=== PATIENT | female | born 1945 | race Caucasian/White ===

== ENCOUNTER → 2016-08-03 | Outpatient (CLI) | payer BC, MEDICARE ==
[~2016-08-03] MED LIST: AMOXICILLIN500 MG PO; ARIMIDEX1 MG PO; Avapro300 MG PO; CALCIUM PO; CARVEDILOL12.5 MG PO; FLUTICASON0.05 MG/A2 NAS; FLUTICASON0.05 MG/AC NAS; HYDRALAZINE10 MG PO; HYDRODIURIL25 MG PO; IBU800 MG PO; LASIX20 MG PO; NATURE'S BLEND F1 MG PO; NORVASC5 MG PO; PROTONIX40 MG PO; SIMVASTATIN20 MG PO; SINGULAIR10 MG PO; VALIUM5 MG PO; VITAMIN D PO; XANAX0.25 MG PO
[2016-08-03 12:04] LABS: BASO # 0.1 10*3/uL (0.0-0.1); BASO % 0.9 % (0.0-1.0); EOS # 0.2 10*3/uL (0.0-0.4); EOS % 2.6 % (1.0-4.0); HEMATOCRIT 38.4 % (37.0-47.0); LYMPH # 1.4 10*3/uL (1.3-4.4); LYMPH % 24.3 % (27.0-41.0); MEAN CORPUSCULAR HGB 33.5 pg (27.0-31.0); MEAN CORPUSCULAR HGB CONC 33.9 g/dl (33.0-37.0); MEAN PLATELET VOLUME 9.7 fl (9.6-12.3); MONO # 0.6 10*3/uL (0.1-1.0); MONO % 10.7 % (3.0-9.0); NEUT # 3.5 10*3/uL (2.3-7.9); NEUT % 61.2 % (47.0-73.0); PLATELET COUNT AUTOMATED 262 10*3/uL (130-400); RED BLOOD COUNT 3.88 10*6/uL (4.10-5.10); RED CELL DISTRI WIDTH 12.4 % (0-14.5); WHITE BLOOD COUNT 5.7 10*3/uL (4.8-10.8)
== END | disposition home or self-care (01) ==
LOC: LAB 11:18 → RAD 11:30
PROVIDERS: Internal Medicine Hematology & Oncology
DX: C50.912 Malignant neoplasm of unspecified site of left female breast (principal); M81.0 Age-related osteoporosis without current pathological fracture; M25.551 Pain in right hip

== ENCOUNTER → 2016-08-07 | Outpatient (CLI) | payer BC, MEDICARE | END | disposition home or self-care (01) | LOC: RAD 03:58 | DX: M81.0 Age-related osteoporosis without current pathological fracture (principal); C50.912 Malignant neoplasm of unspecified site of left female breast; Z78.0 Asymptomatic menopausal state ==

== ENCOUNTER → 2016-08-12 | Outpatient (CLI) | payer BC, MEDICARE | END | disposition home or self-care (01) | LOC: CT 00:25 | DX: Z08 Encounter for follow-up examination after completed treatment for malignant neoplasm (principal); C50.912 Malignant neoplasm of unspecified site of left female breast; K76.0 Fatty (change of) liver, not elsewhere classified ==

== ENCOUNTER → 2017-03-31 | Outpatient (CLI) | payer BC, MEDICARE | END | disposition home or self-care (01) | LOC: RAD 12:43 | DX: T14.90XD Injury, unspecified, subsequent encounter (principal); X58.XXXD Exposure to other specified factors, subsequent encounter ==

== ENCOUNTER → 2017-06-27 | Outpatient (CLI) | payer BC, MEDICARE | END | disposition home or self-care (01) | LOC: RAD 12:06 | DX: M25.552 Pain in left hip (principal); R29.898 Other symptoms and signs involving the musculoskeletal system ==

== ENCOUNTER → 2017-11-30 | Outpatient (CLI) | payer BC, MEDICARE | END | disposition home or self-care (01) | LOC: CARD 11-14 07:30 | DX: I35.1 Nonrheumatic aortic (valve) insufficiency (principal) ==

== ENCOUNTER → 2018-11-23 | Outpatient (CLI) | payer BC, MEDICARE | END | disposition home or self-care (01) | LOC: RAD 10:09 | DX: M16.0 Bilateral primary osteoarthritis of hip (principal); E78.00 Pure hypercholesterolemia, unspecified; I10 Essential (primary) hypertension; M85.88 Other specified disorders of bone density and structure, other site; Z78.0 Asymptomatic menopausal state ==

== ENCOUNTER 2020-12-13 06:25 | Emergency (ER) | payer BC, MEDICARE ==
[~2020-12-13] VITALS: Ht 165.1 cm; Wt 77.1 kg
== END 2020-12-13 07:59 | disposition home or self-care (01) ==
LOC: ED 06:25
DX: R04.0 Epistaxis (principal); E78.5 Hyperlipidemia, unspecified; I10 Essential (primary) hypertension; Z79.899 Other long term (current) drug therapy; Z88.8 Allergy status to other drugs, medicaments and biological substances; Z91.041 Radiographic dye allergy status

== ENCOUNTER → 2020-12-24 | Outpatient (CLI) | payer BC, MEDICARE | LOC: RAD 07:46 | PROVIDERS: ATTEND Physician Assistant | DX: Z13.820 Encounter for screening for osteoporosis (principal); M81.0 Age-related osteoporosis without current pathological fracture; Z78.0 Asymptomatic menopausal state ==

== ENCOUNTER → 2022-04-13 | Outpatient (CLI) | payer BC, MEDICARE | END | disposition home or self-care (01) | LOC: US 01:05 | PROVIDERS: ATTEND Physician Assistant | DX: I10 Essential (primary) hypertension (principal); H93.A2 Pulsatile tinnitus, left ear; I65.23 Occlusion and stenosis of bilateral carotid arteries ==